=== PATIENT | female | born 1995 | race Caucasian/White ===

== ENCOUNTER 2016-06-22 15:06 | Emergency (ER) | payer OTHER ==
[2016-06-22 15:12] VITALS: RESP 16; TEMP 98.4
--- NOTE | 2016-06-22 15:51 | EDPHY ---
H & P Time Seen by Provider: 06/22/16 15:50 HPI/ROS: CHIEF COMPLAINT: Left abdominal pain, I think I have an ovarian cyst HISTORY OF PRESENT ILLNESS: 20-year-old woman started with severe left-sided lower abdominal pain at 2:30 p.m. which felt exactly like multiple previous ovarian cyst. She has had a little bit of pain in the left lower quadrant for 6 -7 days and then today at 2:30 a.m. developed rapid onset 10/10 pain followed by slightly getting better with Advil and then radiating across the rest of her abdomen feeling like cramps from her periods. Symptoms are moderate now. No vomiting or urinary symptoms or vaginal bleeding. No fever or chills or recent fall or injury or trauma. REVIEW OF SYSTEMS: Eye: no change in vision ENT: no sore throat Cardiac: no chest pain or syncope Pulmonary: no cough or SOB Abdomen: no vomiting, diarrhea, abdominal pain Musculoskeletal: no back pain Skin: no rash Neuro: no headache Constitutional: no fever : See HPI, no dysuria or hematuria. A comprehensive 10 point review of systems is otherwise negative aside from elements mentioned in the history of present illness. PAST MEDICAL HISTORY: Emergency department visit dated 05/04/2016 personally reviewed by myself, ultrasound at that time showed hemorrhagic right ovarian cyst. Also includes anxiety and hernia and appendectomy. Kidney infection. Social history: Student General Appearance: Alert and conversant, cooperative. Eyes: No scleral icterus. ENT, Mouth: Normal mucous membranes. Respiratory: Normal respiratory effort, breath sounds equal, lungs are clear to auscultation. Cardiovascular: Regular rate and rhythm. Gastrointestinal: Very mild left lower quadrant tenderness but no rebound or guarding and not distended. Neurological: Alert and oriented x3. Normally conversant. Face symmetric, normal movement and sensation in all extremities. Skin: Warm and dry, no rashes. Musculoskeletal: No peripheral edema and no joint swelling. Psychiatric: Not agitated. Emergency Department course/MDM: Patient presents with symptoms which are likely left ovarian cyst. My suspicion for ectopic or ovarian torsion or renal colic or pyelonephritis is low. Empiric treatment with NSAIDs and rescue narcotics discussed, follow up with [facility]. Urine dip and test negative in the emergency department. Smoking Status: Never smoked Constitutional: Initial Vital Signs Temperature (C) 36.9 C 06/22/16 15:09 Heart Rate 75 06/22/16 15:09 Respiratory Rate 16 06/22/16 15:09 Blood Pressure 90/79 L 06/22/16 15:09 O2 Sat (%) 99 06/22/16 15:09 O2 Delivery Mode Room Air Allergies/Adverse Reactions: shrimp Allergy (Intermediate, Verified 06/22/16 15:12) Rash grapefruit Allergy (Verified 06/22/16 15:12) Sulfa (Sulfonamide Antibiotics) Allergy (Verified 06/22/16 15:12) Home Medications: Medication Instructions Recorded MIRENA 03/13/16 Hydrocodone/APAP 5/325 [[place] 1 - 2 tab PO Q4-6PRN PRN #11 tab 06/22/16 5/325] Departure - Departure Disposition: Home, Routine, Self-Care Clinical Impression: Ovarian cyst Condition: Good Instructions: Ovarian Cyst (ED) Additional Instructions: Ibuprofen 600 mg by mouth every 6 hours as needed for the next 3 days. Referrals: [facility] [Provider Group] - As per Instructions Raquel Philippe CNM [Certified Nurse Receiver] - As per Instructions Prescriptions: Hydrocodone/APAP 5/325 [[place] 5/325] 1 - 2 tab PO Q4-6PRN PRN #11 tab PRN Reason: For Pain
[2016-06-22] MEDS ORDERED: IBUPROFEN 600 MG TAB PO ONE (16:01)
[2016-06-22 16:34] VITALS: BP 100/59; PULSE 72; O2SAT 98
== END 2016-06-22 16:34 | disposition home or self-care (01) ==
DX: N83.202 Unspecified ovarian cyst, left side (principal); Z90.49 Acquired absence of other specified parts of digestive tract

== ENCOUNTER 2016-06-25 19:19 | Emergency (ER) | payer OTHER ==
[2016-06-25 19:40] VITALS: TEMP 98.1
--- NOTE | 2016-06-25 20:12 | EDPHY ---
H & P Time Seen by Provider: 06/25/16 20:11 HPI/ROS: Chief complaint. Vaginal bleeding HPI. 20-year-old female with left lower quadrant pain for 5 days. Large ovarian cyst diagnosed in our emergency department mid April 2016. This feels similar. She was seen in our emergency department June 22 for this left lower quadrant abdominal pain. No ultrasound was performed. She has continued pain. Today vaginal bleeding. She was also seen at work and [place] today and referred to the emergency department. She has an IUD in place. ROS Constitutional. no fever/chills, no weakness Eyes. no problems with vision ENT. no sore throat, no nasal drainage Cardiovascular. no chest pain Respiratory. no shortness of breath, no cough Abdominal. Left lower quadrant abdominal pain with vaginal bleeding . no problems urinating MS. no calf pain/swelling, no neck/back pain, no joint pain Skin. no rash Lymph. no swollen glands Neuro. no headache, no dizziness, no difficulty walking or with speech Past Medical/Surgical History: Gastroparesis, tonsillectomy, depression, anxiety, appendectomy, ovarian cyst, kidney infection Social History: Single, nonsmoker, no alcohol Smoking Status: Never smoked Physical Exam: General Appearance: Alert well-developed female mild distress vital signs are stable Eyes: Pupils equal and round no pallor or injection. ENT, Mouth: Mucous membranes are moist. Respiratory: There are no retractions, lungs are clear to auscultation. Cardiovascular: Regular rate and rhythm. Gastrointestinal: Abdomen is soft with mild tenderness in the left adnexal area Neurological: Awake and alert, sensory and motor exams grossly normal. Skin: Warm and dry, no rashes. Musculoskeletal: Neck is supple nontender. Extremities symmetrical, full range of motion. Psychiatric: Patient is oriented X 3, there is no agitation. Constitutional: Initial Vital Signs Temperature (C) 36.7 C 06/25/16 19:37 Heart Rate 91 06/25/16 19:37 Respiratory Rate 18 06/25/16 19:37 Blood Pressure 127/71 H 06/25/16 19:37 O2 Sat (%) 98 06/25/16 19:37 O2 Delivery Mode Room Air Allergies/Adverse Reactions: shrimp Allergy (Intermediate, Verified 06/22/16 15:12) Rash grapefruit Allergy (Verified 06/22/16 15:12) Sulfa (Sulfonamide Antibiotics) Allergy (Verified 06/22/16 15:12) Home Medications: Medication Instructions Recorded Hydrocodone/APAP 5/325 [[place] 1 each PO Q4-6PRN PRN #10 tab 06/25/16 5/325 (*)] MIRENA 06/25/16 Medical Decision Making - Diagnostics Imaging: Ultrasound shows no evidence for torsion, ovarian cyst, ectopic . It is reviewed by me and discussed with Dr. Wilkerson Procedures: IV normal saline. Morphine for pain. Zofran for nausea ED Course/Re-evaluation: On re-evaluation patient is stable. She and I discussed lab and imaging study results. We discussed treatment plan including criteria for return and importance of follow-up and further evaluation. She expresses understanding and agreement Differential Diagnosis: I considered ovarian cyst as the patient had had a large ovarian cyst about 6 weeks ago. I considered ectopic , urinary tract infection. I suspect the vaginal bleeding is probable normal menses. No obvious evidence for ovarian cyst though it is possible it has ruptured and the cyst as collapse. test is negative. Urinalysis is normal - Data Points Laboratory Results: Laboratory Results 06/25/16 20:15 06/25/16 20:15 06/25/16 06/25/16 06/25/16 21:10 20:15 20:15 WBC RBC Hgb Hct MCV MCH MCHC RDW Plt Count MPV Neut % (Auto) Lymph % (Auto) [place] % (Auto) Eos % (Auto) Baso % (Auto) Nucleat RBC Rel Count Absolute Neuts (auto) Absolute Lymphs (auto) Absolute Monos (auto) Absolute Eos (auto) Absolute Basos (auto) Absolute Nucleated RBC Immature Gran % Immature Gran # Sodium 140 mEq/L mEq/L (134-144) Potassium 3.8 mEq/L mEq/L (3.5-5.2) Chloride 104 mEq/L mEq/L (97-110) Carbon Dioxide 25 mEq/l mEq/l (22-31) Anion Gap 11 mEq/L mEq/L (8-16) BUN 11 mg/dL mg/dL (7-23) Creatinine 0.7 mg/dL mg/dL (0.6-1.0) Estimated GFR > 60 Glucose 83 mg/dL mg/dL (70-100) Calcium 9.0 mg/dL mg/dL (8.5-10.4) Beta HCG, Qual NEGATIVE Urine Color YELLOW Urine Appearance CLEAR Urine pH 5.0 (5.0-7.5) Ur Specific [place] 1.021 (1.002-1.030) Urine Protein NEGATIVE (NEGATIVE) Urine Ketones 1+ H (NEGATIVE) Urine Blood NEGATIVE (NEGATIVE) Urine Nitrate NEGATIVE (NEGATIVE) Urine Bilirubin NEGATIVE (NEGATIVE) Urine Urobilinogen NEGATIVE EU EU (0.2-1.0) Ur Leukocyte Esterase NEGATIVE (NEGATIVE) Ur Culture Indicated? NOT INDICATED (NI) Urine Glucose NEGATIVE (NEGATIVE) 06/25/16 20:15 WBC 7.34 10^3/uL 10^3/uL (3.80-9.50) RBC 4.48 10^6/uL 10^6/uL (4.18-5.33) Hgb 13.6 g/dL g/dL (12.6-16.3) Hct 39.9 % % (38.0-47.0) MCV 89.1 fL fL (81.5-99.8) MCH 30.4 pg pg (27.9-34.1) MCHC 34.1 g/dL g/dL (32.4-36.7) RDW 12.4 % % (11.5-15.2) Plt Count 255 10^3/uL 10^3/uL (150-400) MPV 9.4 fL fL (8.7-11.7) Neut % (Auto) 53.3 % % (39.3-74.2) Lymph % (Auto) 37.7 % % (15.0-45.0) [place] % (Auto) 7.6 % % (4.5-13.0) Eos % (Auto) 0.7 % % (0.6-7.6) Baso % (Auto) 0.4 % % (0.3-1.7) Nucleat RBC Rel Count 0.0 % % (0.0-0.2) Absolute Neuts (auto) 3.91 10^3/uL 10^3/uL (1.70-6.50) Absolute Lymphs (auto) 2.77 10^3/uL 10^3/uL (1.00-3.00) Absolute Monos (auto) 0.56 10^3/uL 10^3/uL (0.30-0.80) Absolute Eos (auto) 0.05 10^3/uL 10^3/uL (0.03-0.40) Absolute Basos (auto) 0.03 10^3/uL 10^3/uL (0.02-0.10) Absolute Nucleated RBC 0.00 10^3/uL 10^3/uL (0-0.01) Immature Gran % 0.3 % % (0.0-1.1) Immature Gran # 0.02 10^3/uL 10^3/uL (0.00-0.10) Sodium Potassium Chloride Carbon Dioxide Anion Gap BUN Creatinine Estimated GFR Glucose Calcium Beta HCG, Qual Urine Color Urine Appearance Urine pH Ur Specific [place] Urine Protein Urine Ketones Urine Blood Urine Nitrate Urine Bilirubin Urine Urobilinogen Ur Leukocyte Esterase Ur Culture Indicated? Urine Glucose Medications Given: Discontinued Medications Sodium Chloride (Ns) 1,000 mls @ 0 mls/hr IV ONCE ONE PRN Reason: Wide Open Stop: 06/25/16 20:37 Last Admin: 06/25/16 20:40 Dose: 1,000 mls Morphine Sulfate (Morphine) 6 mg IVP EDNOW ONE Stop: 06/25/16 20:37 Last Admin: 06/25/16 20:42 Dose: 6 mg Ondansetron HCl (Zofran) 4 mg IVP EDNOW ONE Stop: 06/25/16 20:37 Last Admin: 06/25/16 20:40 Dose: 4 mg Departure - Departure Disposition: Home, Routine, Self-Care Clinical Impression: Abdominal pain Qualifiers: Abdominal location: left lower quadrant Qualified Code(s): R10.32 - Left lower quadrant pain Condition: Good Instructions: Abdominal Pain (ED) Additional Instructions: Ibuprofen 4-600 mg every 6 hours. Hydrocodone in addition. Return for worsening pain, fever, vomiting. Recheck in 2 days if not improving Referrals: Lori Clark MD [Primary Care Provider] - As per Instructions Lissy Alvarenga DO [Doctor of Osteopathy] - 2-3 days, if not improved Prescriptions: Hydrocodone/APAP 5/325 [[place] 5/325 (*)] 1 each PO Q4-6PRN PRN #10 tab PRN Reason: Pain, Moderate
[2016-06-25] MEDS ORDERED: NS 1,000 ML IV ONE (20:36)
[2016-06-25] MEDS ORDERED: ONDANSETRON 4 MG/2 ML VIAL IVP ONE (20:36)
[2016-06-25 20:46] LABS: % IMMATURE GRANULYOCYTES 0.3 % (0.0-1.1); ABSOLUTE IMMATURE GRANULOCYTES 0.02 10^3/uL (0.00-0.10); ADD DIFF? NO; ADD MORPH? NO; ADD SCAN? NO; ATYPICAL LYMPHOCYTE FLAG 0 (0-99); FRAGMENT RBC FLAG 0 (0-99); HEMATOCRIT 39.9 % (38.0-47.0); HEMOGLOBIN 13.6 g/dL (12.6-16.3); LEFT SHIFT FLG 0 (0-99); LIPEMIA HEMOLYSIS FLAG 90 (0-99); MEAN CELL HEMOGLOBIN 30.4 pg (27.9-34.1); MEAN CELL HEMOGLOBIN CONCENTR. 34.1 g/dL (32.4-36.7); MEAN CELL VOLUME 89.1 fL (81.5-99.8); MEAN PLATELET VOLUME 9.4 fL (8.7-11.7); PLATELET CLUMPS FLAG 0 (0-99); PLATELET COUNT 255 10^3/uL (150-400); RED BLOOD CELL COUNT 4.48 10^6/uL (4.18-5.33); RED CELL DISTRIBUTION WIDTH 12.4 % (11.5-15.2)
[2016-06-25 20:53] LABS: ANION GAP 11 mEq/L (8-16); CARBON DIOXIDE 25 mEq/l (22-31); CHLORIDE 104 mEq/L (97-110); CREATININE 0.7 mg/dL (0.6-1.0); GLOMERULAR FILTRATION RATE > 60; GLUCOSE 83 mg/dL (70-100); POTASSIUM 3.8 mEq/L (3.5-5.2); SODIUM 140 mEq/L (134-144)
[2016-06-25 21:18] VITALS: RESP 16
[2016-06-25 21:24] LABS: COLOR YELLOW; LEUKOCYTE ESTERASE,URINE NEGATIVE (NEGATIVE); NITRITE,URINE NEGATIVE (NEGATIVE)
[2016-06-25] MEDS ORDERED: HYDROCOD/APAP 5/325 PREPACK#6 BTL TAKEHOME ONE (22:05)
[2016-06-25 22:17] VITALS: BP 112/83; PULSE 76; O2SAT 95
== END 2016-06-25 22:17 | disposition home or self-care (01) ==
DX: R10.32 Left lower quadrant pain (principal); Z90.49 Acquired absence of other specified parts of digestive tract
CPT/HCPCS: 96374; J2405

== ENCOUNTER 2016-07-21 11:18 | Emergency (ER) | payer OTHER ==
[2016-07-21] MEDS ORDERED: ONDANSETRON 4 MG/2 ML VIAL IVP ONE (13:57)
[2016-07-21] MEDS ORDERED: NS 1,000 ML IV ONE (13:57)
[2016-07-21 14:20] LABS: % IMMATURE GRANULYOCYTES 0.1 % (0.0-1.1); ABSOLUTE IMMATURE GRANULOCYTES 0.01 10^3/uL (0.00-0.10); ADD DIFF? NO; ADD MORPH? NO; ADD SCAN? NO; ATYPICAL LYMPHOCYTE FLAG 10 (0-99); FRAGMENT RBC FLAG 0 (0-99); HEMATOCRIT 40.8 % (38.0-47.0); HEMOGLOBIN 13.8 g/dL (12.6-16.3); LEFT SHIFT FLG 0 (0-99); LIPEMIA HEMOLYSIS FLAG 90 (0-99); MEAN CELL HEMOGLOBIN CONCENTR. 33.8 g/dL (32.4-36.7); MEAN CELL VOLUME 91.7 fL (81.5-99.8); MEAN PLATELET VOLUME 9.4 fL (8.7-11.7); PLATELET CLUMPS FLAG 0 (0-99); PLATELET COUNT 213 10^3/uL (150-400); RED BLOOD CELL COUNT 4.45 10^6/uL (4.18-5.33); RED CELL DISTRIBUTION WIDTH 12.6 % (11.5-15.2)
[2016-07-21] MEDS ORDERED: KETOROLAC 30 MG/1 ML SDV IVP ONE (14:26)
--- NOTE | 2016-07-21 14:32 | EDPHY ---
H & P Stated Complaint: l abd pain/hx monthly ed visits r/t ovarian cysts/ Time Seen by Provider: 07/21/16 14:28 HPI/ROS: HPI: 20-year-old female presents to emergency department with chief concern lower abdominal pain. Pain onset over the past few days, it is 8/10 on the left lower abdomen presently. Denies fever, chills, myalgias, URI symptoms, shortness of breath, chest pain, nausea, vomiting, diarrhea, urinary symptoms, back or flank pain, or unusual vaginal discharge. Has a history of monthly lower abdominal pain that is entirely consistent with this pain and has been related to ovarian cyst in the past. Had a a pelvic/renal ultrasound on June 25 that showed an IUD that was in place, a normal left ovary, and a resolved hemorrhagic right cyst. Has an appointment with [employer] combination [employer] for follow-up on July 27. No history of STI ROS:10 point review of systems is negative other than as stated in HPI Source: Patient Exam Limitations: No limitations - Personal History LMP (Females 10-55): IUD In Place Current Tetanus/Diphtheria Vaccine: Yes Tetanus Vaccine Date: 2007 - Medical/Surgical History Hx Asthma: Yes Hx Chronic Respiratory Disease: No Hx Diabetes: No Hx Cardiac Disease: No Hx Renal Disease: No Hx Cirrhosis: No Hx Alcoholism: No Hx HIV/AIDS: No Hx Splenectomy or Spleen Trauma: No Other PMH: PMH/PSH: gastroparesis, tonsils, depression, anxiety, septoplasty, hernia, APPY, torticollis, ovarian cysts, kidney infection - Family History Significant Family History: No pertinent family hx - Social History Smoking Status: Never smoked Alcohol Use: Rarely Drug Use: None Additional Social History: [employer] student - Physical Exam Exam: Vital signs stable, reviewed by me General: Awake, alert, calm, cooperative. No acute distress. Head: Normalocephalic. Atraumatic. EENT: PERRLA. EOMI. No pallor or injection. Anicteric. No nystagmus. No injection. TMs intact bilaterally with normal landmarks. Neck: Supple, nontender. No lymphadenopathy. Full range of motion. No meningismus. Respiratory: Breathing unlabored. Breath sounds equal bilaterally and clear to auscultation. No adventitious sounds. CV: Chest nontender, atraumatic. Heart rate regular. No murmur, distal pulses 2+ bilaterally. Brisk cap refill all extremities. GI: Abdomen soft, moderate left lower quadrant tenderness, mild mid and right lower quadrant tenderness. Negative rebound. Bowel sounds normoactive and positive x4 quadrants. : No CVA or flank tenderness. Neuro: Alert. Oriented x 3. Speech clear. Nonfocal cranial nerves throughout. Sensation intact all extremities. Skin: Skin warm, dry, intact. Skin turgor normal. Extremities: Full range of motion in all 4 extremities. Strength 5+ all extremities. Constitutional: Initial Vital Signs Temperature (C) 36.5 C 07/21/16 11:34 Heart Rate 79 07/21/16 11:34 Respiratory Rate 18 07/21/16 11:34 Blood Pressure 117/74 07/21/16 11:34 O2 Sat (%) 98 07/21/16 11:34 O2 Delivery Mode Room Air Allergies/Adverse Reactions: shrimp Allergy (Intermediate, Verified 07/21/16 11:33) Rash grapefruit Allergy (Verified 07/21/16 11:33) Sulfa (Sulfonamide Antibiotics) Allergy (Verified 07/21/16 11:33) Home Medications: Medication Instructions Recorded Hydrocodone/APAP 5/325 [[place] 1 each PO Q4-6PRN PRN #10 tab 06/25/16 5/325 (*)] MIRENA 06/25/16 Hydrocodone/APAP 5/325 [[place] 1 - 2 tab PO Q6H PRN #20 tab 07/21/16 5/325 (*)] Medical Decision Making ED Course/Re-evaluation: 20-year-old female returns to emergency department with chief concern lower abdominal discomfort. This discomfort is entirely consistent with previous episodes of lower abdominal/pelvic discomfort that she has had monthly since March. On June 25 she had a pelvic and renal ultrasound that showed a normal IUD P, normal left ovary, in a resolved right hemorrhagic cyst. She has had these monthly episodes since March. Pain is entirely consistent with these episodes. She is afebrile. Vitals are stable. After 30 mg IV Toradol and 1 mg IV Dilaudid her pain is 2/10 and she is feeling much better. Urine preg performed in the ED is negative. Urine dip in the ED is negative. She has follow up with OB on July 27. She is stable for discharge. She is comfortable with this plan. I do not feel that reimaging her is warranted at this time given the nature of her pain entirely consistent with previous monthly episodes of pain, and her stable vital signs. Differential Diagnosis: Differential diagnosis includes but is not limited to UTI, dysmenorrhea, endometriosis, PID - Data Points Laboratory Results: Laboratory Results 07/21/16 14:10 07/21/16 14:10 07/21/16 07/21/16 14:10 14:10 WBC 7.66 10^3/uL 10^3/uL (3.80-9.50) RBC 4.45 10^6/uL 10^6/uL (4.18-5.33) Hgb 13.8 g/dL g/dL (12.6-16.3) Hct 40.8 % % (38.0-47.0) MCV 91.7 fL fL (81.5-99.8) MCH 31.0 pg pg (27.9-34.1) MCHC 33.8 g/dL g/dL (32.4-36.7) RDW 12.6 % % (11.5-15.2) Plt Count 213 10^3/uL 10^3/uL (150-400) MPV 9.4 fL fL (8.7-11.7) Neut % (Auto) 59.9 % % (39.3-74.2) Lymph % (Auto) 32.5 % % (15.0-45.0) [place] % (Auto) 6.0 % % (4.5-13.0) Eos % (Auto) 1.0 % % (0.6-7.6) Baso % (Auto) 0.5 % % (0.3-1.7) Nucleat RBC Rel Count 0.0 % % (0.0-0.2) Absolute Neuts (auto) 4.58 10^3/uL 10^3/uL (1.70-6.50) Absolute Lymphs (auto) 2.49 10^3/uL 10^3/uL (1.00-3.00) Absolute Monos (auto) 0.46 10^3/uL 10^3/uL (0.30-0.80) Absolute Eos (auto) 0.08 10^3/uL 10^3/uL (0.03-0.40) Absolute Basos (auto) 0.04 10^3/uL 10^3/uL (0.02-0.10) Absolute Nucleated RBC 0.00 10^3/uL 10^3/uL (0-0.01) Immature Gran % 0.1 % % (0.0-1.1) Immature Gran # 0.01 10^3/uL 10^3/uL (0.00-0.10) Sodium 141 mEq/L mEq/L (134-144) Potassium 4.0 mEq/L mEq/L (3.5-5.2) Chloride 108 mEq/L mEq/L (97-110) Carbon Dioxide 22 mEq/l mEq/l (22-31) Anion Gap 11 mEq/L mEq/L (8-16) BUN 13 mg/dL mg/dL (7-23) Creatinine 0.6 mg/dL mg/dL (0.6-1.0) Estimated GFR > 60 Glucose 81 mg/dL mg/dL (70-100) Calcium 9.0 mg/dL mg/dL (8.5-10.4) Medications Given: Discontinued Medications Hydrocodone Bitart/Acetaminophen ([place] 5/325) 2 tab PO EDNOW ONE Stop: 07/21/16 15:37 Last Admin: 07/21/16 15:55 Dose: 2 tab Hydromorphone HCl (Dilaudid) 1 mg IVP EDNOW ONE Stop: 07/21/16 14:57 Last Admin: 07/21/16 15:02 Dose: 1 mg Sodium Chloride (Ns) 1,000 mls @ 0 mls/hr IV ONCE ONE PRN Reason: Wide Open Stop: 07/21/16 13:58 Last Admin: 07/21/16 14:10 Dose: 1,000 mls Ketorolac Tromethamine (Toradol) 30 mg IVP EDNOW ONE Stop: 07/21/16 14:27 Last Admin: 07/21/16 14:36 Dose: 30 mg Ondansetron HCl (Zofran) 4 mg IVP EDNOW ONE Stop: 07/21/16 13:58 Last Admin: 07/21/16 14:10 Dose: 4 mg Departure - Departure Disposition: Home, Routine, Self-Care Clinical Impression: Pelvic pain Condition: Good Instructions: Pelvic Pain in Women (ED) Additional Instructions: Plan: Follow up with OBGYN as planned on July 27 You may use 600 mg of ibuprofen every 6 hours for fever, inflammation, or pain. Always take ibuprofen with food and stay well hydrated while taking. Do not exceed the maximum allowable dose in a 24 hour period which is 2400 mg. For more severe pain, 1-2 [place] every 6 hours as needed--Never drink or drive while taking this medication. This medication impairs decision making capacity so do not work or sign important documents while taking. This medication its constipating so drink plenty of fluids and consider an [id number] stool softener such as docusate sodium (Colace) while taking this medication. This medication has addictive properties. You should use the least amount for the shortest amount of time. [facility] do not refill narcotic pain medication prescriptions. This is a hospital policy. You will need to follow up as indicated for recheck for further narcotic refills. Return to emergency department for worsening symptoms despite treatment plan Referrals: NONE *PRIMARY CARE P,. [Primary Care Provider] - As per Instructions Lissy Alvarenga DO [Doctor of Osteopathy] - As per Instructions Prescriptions: Hydrocodone/APAP 5/325 [[place] 5/325 (*)] 1 - 2 tab PO Q6H PRN #20 tab PRN Reason: severe pain
[2016-07-21] MEDS ORDERED: HYDROmorphONE/DILAUDID 1 MG/ML SYR IVP ONE (14:56)
[2016-07-21 15:03] LABS: CHLORIDE 108 mEq/L (97-110); SODIUM 141 mEq/L (134-144)
[2016-07-21 15:22] LABS: ANION GAP 11 mEq/L (8-16); CARBON DIOXIDE 22 mEq/l (22-31); CREATININE 0.6 mg/dL (0.6-1.0); GLOMERULAR FILTRATION RATE > 60; GLUCOSE 81 mg/dL (70-100)
[2016-07-21] MEDS ORDERED: HYDROCODONE/APAP 5/325 TAB PO ONE (15:36)
[2016-07-21 15:58] VITALS: BP 123/79; PULSE 67; RESP 16; TEMP 98.2; O2SAT 94
== END 2016-07-21 15:58 | disposition home or self-care (01) ==
DX: R10.2 Pelvic and perineal pain (principal); J45.909 Unspecified asthma, uncomplicated
CPT/HCPCS: 96374; J1170; J1885; J2405

== ENCOUNTER 2016-10-27 22:26 | Emergency (ER) | payer OTHER ==
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
[2016-10-27 23:07] LABS: COLOR YELLOW; LEUKOCYTE ESTERASE,URINE NEGATIVE (NEGATIVE); NITRITE,URINE NEGATIVE (NEGATIVE)
[2016-10-27] MEDS ORDERED: KETOROLAC 30 MG/1 ML SDV IM ONE (23:57)
[2016-10-28 01:05] VITALS: BP 105/72; PULSE 65; RESP 20; TEMP 98.6; O2SAT 95
== END 2016-10-28 01:05 | disposition home or self-care (01) ==
DX: R10.10 Upper abdominal pain, unspecified (principal); J45.909 Unspecified asthma, uncomplicated
CPT/HCPCS: J1885